=== PATIENT | female | born 1955 | race Caucasian/White ===

== ENCOUNTER 2018-04-25 12:57 | Outpatient (CLI) | payer OTHER ==
[~2018-04-25 12:57] MED LIST: AVELOX ABC PAC400 MG; GILTUSS TR TAB1 EACH
== END 2018-04-25 13:00 | disposition home or self-care (01) ==
LOC: SONOGRAMA 12:57
DX: M72.2 Plantar fascial fibromatosis (principal)

== ENCOUNTER → 2018-07-31 | Outpatient (CLI) | payer OTHER | END | disposition home or self-care (01) | LOC: RAD 09:43 | DX: I15.8 Other secondary hypertension (principal); I10 Essential (primary) hypertension ==

== ENCOUNTER → 2019-04-06 | Outpatient (CLI) | payer OTHER | END | disposition home or self-care (01) | LOC: MAMO-SONO 10:29 | DX: Z12.31 Encounter for screening mammogram for malignant neoplasm of breast (principal); Z87.898 Personal history of other specified conditions; M77.30 Calcaneal spur, unspecified foot; M77.31 Calcaneal spur, right foot; M77.32 Calcaneal spur, left foot; M79.671 Pain in right foot; M79.672 Pain in left foot ==

== ENCOUNTER → 2019-09-16 | Outpatient (CLI) | payer OTHER | END | disposition home or self-care (01) | LOC: NUCLEAR 13:00 | DX: M81.0 Age-related osteoporosis without current pathological fracture (principal) ==

== ENCOUNTER 2019-12-25 14:32 | Outpatient (CLI) | payer OTHER | END 2019-12-25 14:37 | disposition home or self-care (01) | LOC: SONOGRAMA 14:32 → MAMO-SONO 14:45 | DX: E04.1 Nontoxic single thyroid nodule (principal) ==

== ENCOUNTER → 2020-07-13 | Outpatient (CLI) | payer OTHER | END | disposition home or self-care (01) | LOC: MAMO-SONO 13:45 → SONOGRAMA 14:10 | PROVIDERS: ATTEND Internal Medicine Nephrology | DX: N18.3 Chronic kidney disease, stage 3 (moderate) (principal); I12.9 Hypertensive chronic kidney disease with stage 1 through stage 4 chronic kidney disease, or unspecified chronic kidney disease; M16.9 Osteoarthritis of hip, unspecified ==

== ENCOUNTER 2021-10-03 10:51 | Outpatient (CLI) | payer OTHER | END 2021-10-03 10:56 | disposition home or self-care (01) | LOC: MAMO-SONO 10:51 | DX: N64.89 Other specified disorders of breast (principal); Z12.31 Encounter for screening mammogram for malignant neoplasm of breast ==